=== PATIENT | male | born 1945 | race Caucasian/White ===

== ENCOUNTER 2017-07-20 13:44 | Inpatient (IN) | payer MEDICARE ==
[~2017-07-20] VITALS: Ht 180.3 cm; Wt 102.7 kg
--- NOTE | ~2017-07-20 | CN ---
PATIENT NAME:ALEX BAPTISTE MEDICAL RECORD: [id number] : 43 LOCATION:[facility].2120 ADMIT DATE: 07/20/17 ACCOUNT: [id number] CONSULTING PHYSICIAN: JOYA ROMO MD REFERRING PHYSICIAN: EMRE ZAMAN MD DATE OF CONSULTATION: 07/21/2017 CONSULT REQUESTING PHYSICIAN: Emre Zaman MD REASON FOR CONSULTATION: Acute exacerbation of bronchiectasis, pneumonia. HISTORY OF PRESENT ILLNESS: Mr. Baptiste is a 72-year-old very pleasant gentleman who has a history of bronchiectasis, atrial fibrillation, depression. The patient presented to [facility] with some tightness in the chest, but he is also having spasmodic cough for the last 2 weeks. It is very difficult to bring up any phlegm. In [facility], the chest radiograph showed some pneumonia, bibasal, and the patient was given some antibiotic. He had elevated cardiac enzyme and the patient was brought for advanced cardiac care. REVIEW OF THE SYSTEMS: As in history of present illness. PAST MEDICAL HISTORY: 1. Bronchiectasis. 2. Gastroesophageal reflux disease. 3. Obstructive sleep apnea. 4. Atrial fibrillation. 5. Anxiety, depression. PAST SURGICAL HISTORY: 1. Back surgery. 2. Herniorrhaphy. ALLERGIES: There are no known drug allergies. MEDICATIONS: Send Word Now was reviewed. PERSONAL AND SOCIAL HISTORY: The patient never smoked. He is nondrinker. FAMILY HISTORY: Significant for cardiovascular diseases. PHYSICAL EXAMINATION: GENERAL: Now, the patient is lying comfortably in bed. He is not in acute distress. VITAL SIGNS: Blood pressure 132/63, pulse is 95, respiration is 20, temperature is 99.7, SpO2 is 92% on 2.5 liters nasal cannula. HEENT: Conjunctivae are pink. Sclerae are not icteric. NECK: Neck is supple. No JVD. CHEST: The chest excursion is minimal on both sides. There are crackles, more at the left base than the right. HEART: Rhythm regular. Normal sound. No murmur. ABDOMEN: Abdomen is soft. Bowel sounds present. No hepatosplenomegaly. RECTAL: Deferred. EXTREMITIES: No cyanosis. No clubbing. No pedal edema. SKIN: The skin is warm. Normal turgor. CENTRAL NERVOUS SYSTEM: The patient is awake and alert. There are no obvious CONSULT REPORT [id number] ALEX BAPTISTE cranial nerve abnormalities. The gait was not tested. CHEST RADIOGRAPH: There are increased interstitial and bibasilar infiltrates. OTHER LABORATORY DATA: CBC; the WBC of 11.5, hemoglobin is 12.6, hematocrit 37.3, and platelet count 171. Chemistries; sodium is 141, potassium 3.4, BUN is 12. IMPRESSION: 1. Pneumonia, bibasal, most likely community-acquired pneumonia. 2. Bronchiectasis. The patient is seeing Dr. Jauregui at [place] and he has had workup for the bronchiectasis. 3. Acute exacerbation of bronchiectasis. 4. Acute cough. 5. Obstructive sleep apnea. 6. Chest pain with elevated cardiac enzymes. Rule out acute coronary syndrome. 7. Gastroesophageal reflux disease. RECOMMENDATION: 1. Start him on Levaquin and cefepime IV to cover for gram-negative rods. 2. Start Brovana and budesonide nebulizer. 3. Mucinex DM two tablets b.i.d. 4. Followup labs and chest radiograph in the morning. 5. The patient is going for the cardiac catheterization in the a.m. 6. GERD precaution given to keep the head end of the bed elevated by [address] Zaman, thank you for involving me in the care of Mr. Baptiste. TRANSINT:[id number] Voice Confirmation ID: [id number] DOCUMENT ID: [id number] JOYA ROMO MD at 1806 CC: EMRE ZAMAN MD [id number] DICTATION DATE: 07/21/17 1413 MALT LOADER: 07/21/17 1519 DIS IN 07/23/17 [place] [id number]
--- NOTE | ~2017-07-20 | EC ---
PATIENT:ALEX WILSON DATE OF SERVICE: 07/20/17 SEX: M MEDICAL RECORD: [id number] DATE OF : 43 LOCATION:D.M2 D.212 AGE OF PATIENT: 72 ADMISSION DATE: 07/20/17 REFERRING PHYSICIAN: INTERPRETING PHYSICIAN: COLUMBA ORDONEZ MD ECHOCARDIOGRAM REPORT ECHO CHARGES 4 ECHO COMPLETE Date: 07/21 CLINICAL DIAGNOSIS: CHEST PAIN, AFIB ECHOCARDIOGRAPHIC MEASUREMENTS (adult normal given) AC root (d.<3.7cm) 3.2 cm LV Septum d (<1.2 cm> 1.4 cm Valve Excursion 1.4 cm LV Septum (systole) 1.7 cm Left Atria (s.<4.0cm> 5.4 cm LVPW d(<1.2cm) 1.5 cm RV (d.<2.3cm) 4.7 cm LVPW (sytole) 1.6 cm LV diastole(<5.6CM) 5.5 cm MV E-F(>70mm/sec) cm LV systole 3.9 cm LVOT Diameter 2.0 cm MV exc.(>10mm) 1.6 cm Est.ejection fraction (50-75%) % DOPPLER: LVIT cm/sec A 43.0 cm/sec E 117 cm/sec LA cm/sec RVSP 45 mmHg LVOT 86 cm/sec AOP1/2T m/s Asc. Ao 163 cm/sec RVOT 88 cm/sec RA cm/sec PA 123 cm/sec AV Gradient Peak 10.61mmHg AV Mean 5.68 mmHg AV Area 2.7 cm MV Gradient Peak 4.97 mmHg MV Mean 1.84 mmHg MV Area cm COMMENTS: Lead Welder: 2 HADLEY LEBRON Community Manager: 4 Dr. Ordonez TAPE# PACS Pericardial Effusion N DATE OF SERVICE: PROCEDURE: Transthoracic echocardiogram. FINDINGS: 1. Left ventricle appears to be low normal 50% to 55%. There is atrial fibrillation. Inflow characteristics were not helpful for diastology, appears to be moderate left ventricular hypertrophy. 2. The right ventricle is moderately dilated. 3. The left atrium is severely dilated. ECHOCARDIOGRAM REPORT [id number] ALEX WILSON 4. The aortic valve is normal structure and function. 5. The mitral valve is normal structurally with sizp-fp-aecfnegy mitral regurgitation. 6. Tricuspid valve has yxzn-kd-pyimohhp tricuspid regurgitation. RVSP is mildly elevated at 45 mmHg. 7. The pulmonic valve is normal. 8. The pericardium appears to be normal. CONCLUSIONS: The patient has atrial fibrillation with preserved LV systolic function and left ventricular hypertrophy and dilated left atrium. TRANSINT:[id number] Voice Confirmation ID: [id number] DOCUMENT ID: [id number] COLUMBA ORDONEZ MD at 1029 CC: [id number] DICTATION DATE: 07/25/17 0758 DIRECTOR MORTGAGE: 07/25/17 0930 DIS IN 07/23/17 [facility] [address] [place] [address]
--- NOTE | ~2017-07-20 | HEMODYNAMI ---
PATIENT:ALEX WILSON MEDICAL RECORD: [id number] : 43 LOCATION:[address] ADMISSION DATE: 07/20/17 Generatedon:07/23/20178:55 Patient name: ALEX WILSON Patient #: [id number] SSN: [id number] : 1945 Date of study: 07/23/2017 Page: Of Hemodynamic Procedure Report Patient Data Patient Demographics Procedure consent was obtained First Name: ALEX Gender: Male Last Name: KATIE : 1945 Patient #: [id number] Age: 72 year(s) Race: SSN: [id number] Additional ID: [id number] Contact details Address: [address] [place] [address] State: [place] City: [place] Zip code: [address] Past Medical History Allergies: No known allergies Admission Admission Data Admission Date: 07/20/2017 Admission Time: 15:49 Arrival Date: 07/23/2017 Arrival Time: 15:49 Admit Source: Other Insurance Payor: Medicare Room #: D.2120 Lab Results Lab Result Date: 07/23/2017 Lab Result Time: 0:00 Biochemistry Name Units Result Min Max BUN mg/dl 16 --(---*)-- 7 18 Creatinine mg/dl 1.2 --(---*)-- 0.6 1.3 CBC Name Units Result Min Max Hemoglobin g/dl 12.6 -*(----)-- 13.5 17.5 Procedure Procedure Types Cath Procedure Diagnostic Procedure LHC LHC w/Coronaries Sedation Charges Moderate Sedation up to 15 minutes Procedure Description Procedure Date Procedure Date: 07/23/2017 Procedure Start Time: 8:39 Procedure End Time: 8:54 Procedure Staff Name Function Emre Ordonez MD Performing Physician Lucia Sullivan RT Monitor Cj Dietrich RN Nurse Yolanda Chung RT Scrub Procedure Data Cath Procedure Fluoroscopy Diagnostic fluoroscopy Total fluoroscopy Time: 2 time: 2 min min Diagnostic fluoroscopy Total fluoroscopy dose: 439 dose: 439 mGy mGy Contrast Material Contrast Material Type Amount (ml) Isovue 300 36 Entry Location Entry Primary Successful Side Size Upsize Upsize Entry Closure Bauer ccessful Closure Location (Fr) 1 (Fr) 2 (Fr) Remarks Device Remarks Radial Right 6 Fr Mechanical TR artery Short Compression Estimated blood loss: 10 ml Diagnostic catheters Device Type Used For End Catheter Placement DIAGNOSTIC Golden Gate 110cm 5 Procedure Fr catheter ([id number]) Procedure Complications No complications Procedure Medications Medication Administration Route Dosage Oxygen NC 3 l/min Lidocaine 2% added to field 20 Heparin Flush Bag added to field 2 bags (1000units/500ml NS) 0.9% NaCl I.V. 100 ml/hr Versed I.V. 1 mg Fentanyl I.V. 25 mcg Radial Cocktail I.A. 1 syringe (Verapomil 2mg/Nitro 400mcg/Heparin 1500units) Nitroglycerin IC/IA I.A. 300 mcg Hemodynamics Rest HGB: 12.6 (g/dl) Heart Rate: 96 (bpm) Pressure Samples Time Site Value (mmHg) Purpose Heart Use Rate(bpm) 8:48 LV 116/-11,-10 Snapshot 91 8:48 LV 230/-27,-12 EDP 62 Gradients Valve Time Site Site Mean SEP/DFP Peak To Heart Use 1 2 (mmHg) (sec/min) Peak Rate (mmHg) (bpm) Aortic 8:48 LV AO 93 Snapshots Pre Cath Intra NCS Post Cath Vital Signs Time Heart Resp SPO2 etCO2 NIBP (mmHg) Rhythm Pain Sedation Rate (ipm) (%) (mmHg) Status Level (bpm) 8:26:09 89 19 97 18.6 156/103(132) A-Fib 0 (11) 10(A) , No pain 8:30:19 77 22 97 25.3 162/99(129) A-Fib 0 (11) 10(A) , No pain 8:34:31 85 23 97 24.5 148/94(140) A-Fib 0 (11) 10(A) , No pain 8:38:33 81 19 92 11.9 150/97(131) A-Fib 0 (11) 10(A) , No pain 8:42:40 89 19 96 18.6 151/100(133) A-Fib 0 (11) 10(A) , No pain 8:46:44 77 24 90 8.9 129/84(107) A-Fib 0 (11) 10(A) , No pain 8:50:56 80 20 94 13.4 120/76(107) A-Fib 0 (11) 10(A) , No pain 8:55:02 74 24 96 29.7 138/85(118) A-Fib 0 (11) 10(A) , No pain Medications Time Medication Route Dose Verified Delivered Reason Notes Effectiveness by by 8:24:35 Oxygen NC 3 l/min Emre Buffie used for José Luis Dietrich RN procedure MD 8:25:24 Lidocaine 2% added 20ml Emre Emre for local to vial José Luis Ordonez MD anesthetic field [facility] 8:25:29 Heparin Flush added 2 bags Emre Emre used for Bag to José Luis Ordonez MD procedure (1000units/500ml field [place]AL[place] NS) 8:25:37 0.9% NaCl I.V. 100 Emre Buffie Per ml/hr José Luis Dietrich RN physician 8:35:56 Versed I.V. 1 mg Emre Buffie for sedation José Luis Dietrich RN, MD 8:36:01 Fentanyl I.V. 25 mcg Emre Buffie for sedation José Luis Dietrich RN, MD 8:43:44 Radial Cocktail I.A. 1 Emre Emre for (Verapomil syringe José Luis Ordonez MD vasodilation 2mg/Nitro 400mcg/Heparin 1500units) 8:44:43 Nitroglycerin I.A. 300 mcg Emre Emre for for IC/IA José Luis Ordonez MD vasodilation possible spasm to rad artery Procedure Log Time Note 7:26:09 Diagnostic Cath Status : Elective 7:35:32 Informed consent obtained and on chart 7:35:47 Admit Source: Other 7:36:02 Arrival Date: 07/23/2017 3:49:00 PM 7:36:07 Insurance Payor : Medicare 7:37:00 Lab Result : Creatinine 1.2 mg/dl 7:37:00 Lab Result : BUN 16 mg/dl 7:37:00 Lab Result : Hemoglobin 12.6 g/dl 8:15:56 Cj Dietrich RN sent for patient. Start room use. 8:15:57 Time tracking: Regular hours (M-F 7:00 - 5:00) 8:16:01 Plan of Care:Hemodynamics will remain stable., Cardiac rhythm will remain stable., Comfort level will be maintained., Respiratory function will remain adequate., Patient/ family verbilizes understanding of procedure., Procedure tolerated without complication., Recovers from procedure without complications.. 8:19:07 Patient received from Med II to CCL 2 Alert and oriented. Tansferred to table in Supine position. 8:19:08 Warm blankets applied, and acrmela hugger turned on for patient comfort. 8:19:08 Correct patient and procedure confirmed by team. 8:19:09 ECG and BP/O2 sat monitors applied to patient. 8:24:23 Vital chart was started 8:24:35 Oxygen 3 l/min NC was administered by Cj Dietrich RN; used for procedure; 8:25:24 Lidocaine 2% 20ml vial added to field was administered by Emre Ordonez MD; for local anesthetic; 8:25:29 Heparin Flush Bag (1000units/500ml NS) 2 bags added to field was administered by Emre Ordonez MD; used for procedure; 8:25:37 0.9% NaCl 100 ml/hr I.V. was administered by Cj Dietrich RN; Per physician; 8:33:01 Baseline sample Acquired. 8:33:17 Rhythm: atrial fibrillation 8:33:19 Full Disclosure recording started 8:34:00 H&P Date Dictated: 07/22/2017 Within 30 days and on chart.. 8:34:01 Pre-procedure instructions explained to patient. 8:34:04 Family in patients room. 8:34:06 Patient NPO since Midnight. 8:34:17 Patient allergic to No known allergies 8:34:22 Is the patient allergic to Iodine/contrast media? No. 8:34:23 Was the patient premedicated? Yes 8:34:25 Is patient on blood thinner?Yes 8:34:28 ACC The patient was administered the following blood thiners within the last 24 hours: ACCPlavix 8:34:31 Patient diabetic? No. 8:34:35 Snore? Yes 8:34:36 Sleep apnea? Yes 8:34:37 Deviated septum? No 8:35:06 Airway obstruction? Yes chronic broncitis, pneumonia 8:35:10 Dentures? No ? 8:35:15 Patient pain scale 0/10 ?. 8:35:22 IV patent on arrival in left forearm with 0.9% NaCl at O. 8:35:27 Lab results completed and on chart. 8:35:31 Right Radial & Right Groin area was prepped with chlora-prep and draped in sterile fashion 8:35:32 Alarms reviewed by R. N. 8:35:33 Sharps counted by scrub and verified by R.N. 8:35:35 Physician arrived 8:35:36 --------ALL STOP TIME OUT------ 8:35:36 Final Timeout: patient, procedure, and site verified with staff and physician. All members of the team are in agreement. 8:35:41 Right Radial & Right Groin site verified by team. 8:35:46 Physical assessment completed. ASA score P 2 - A patient with mild systemic disease as per Emre Ordonez MD. 8:35:51 Sedation plan: IV Moderate Sedation Medication:Versed, Fentanyl 8:35:55 Use device set Femoral Dx 8:35:56 Versed 1 mg I.V. was administered by Cj Dietrich RN; for sedation; 8:36:01 Fentanyl 25 mcg I.V. was administered by Cj Dietrich RN; for sedation; 8:38:17 ACIST Syringe (74339) opened to sterile field. 8:38:18 Bag Decanter (2002) opened to sterile field. 8:38:19 Medline Cath Pack ([id number]) opened to sterile field. 8:38:19 DIAGNOSTIC WIRE .035 260cm J wire (249017) opened to sterile field. 8:38:20 ACIST Hand Control (37786) opened to sterile field. 8:38:21 ACIST Manifold (46429) opened to sterile field. 8:38:23 Tegaderm 4 x 4 (1626W) opened to sterile field. 8:38:43 SHEATH 6Fr Prelude Radial ([id number]) opened to sterile field. 8:39:14 Procedure started. 8:39:37 Local anesthetic to right radial artery with Lidocaine 2% by Emre Ordonez MD.INITIAL ACCESS ONLY 8:42:34 A DIAGNOSTIC Golden Gate 110cm 5 Fr catheter (268388) was advanced over the wire and used for Procedure. 8:42:48 A 6 Fr Short sheath was inserted into the Right Radial artery 8:43:44 Radial Cocktail (Verapomil 2mg/Nitro 400mcg/Heparin 1500units) 1 syringe I.A. was administered by Emre Ordonez MD; for vasodilation; 8:44:43 Nitroglycerin IC/IA 300 mcg I.A. was administered by Emre Ordonez MD; for vasodilation; for possible spasm to rad artery 8:47:14 GLIDE WIRE ANGLE 260cm ([id number]) opened to sterile field. 8:47:29 glidewire used through tiger 8:48:57 LV angiography performed. 8:49:07 LCA angiography performed. 8:50:03 RCA angiography performed. 8:51:49 Catheter removed. 8:52:17 Sheath removed intact; hemostasis achieved with Mechanical Compression to the Right Radial artery. 8:52:26 TR BAND Standard ([id number]) opened to sterile field. 8:52:30 Procedure ended.(Physican Out) 8:52:41 Fluoroscopy time 02.00 minutes. 8:52:45 Fluoroscopy dose: 439 mGy 8:52:45 Flurop Dose total: 439 8:52:50 Contrast amount:Isovue 300 36ml. 8:52:54 TR band inflated with 13cc of air. 8:52:56 Insertion/operative site no bleeding no hematoma. 8:52:58 Post Procedure Pulses reassessed and unchanged 8:53:02 Post-procedure physical assessment completed. ASA score P 2 - A patient with mild systemic disease as per Emre Ordonez MD. 8:53:07 Post procedure rhythm: unchanged. 8:53:12 Estimated blood loss: 10 ml 8:53:13 Post procedure instruction explained to patient.Patient verbalizes understanding. 8:53:42 Procedure type changed to Cath procedure, Diagnostic procedure, LHC, LHC w/Coronaries, Sedation Charges, Moderate Sedation up to 15 minutes 8:53:44 Procedure and supply charges have been captured, reviewed, submitted and are correct. 8:54:21 Procedure Complication : No complications 8:54:23 Vital chart was stopped 8:54:24 See physician's report for complete and final results. 8:54:27 Report given to [facility] II. 8:54:32 Patient transfered to [facility] with Bed. 8:54:35 Procedure ended. 8:54:35 Full Disclosure recording stopped 8:54:40 End room use (Document Last) Device Usage Item Name Manufacture Quantity Catalog Number Hospital Part Current M inimal Lot# / Charge Number Stock Stock Serial# Code ACIST Syringe Acist 1 10405 943851 964425 030900 2 0 (99590) [employer] Bag Decanter Microtek 1 2001S 039737 94606 998211 5 (2001S) Medical Inc. Medline Cath Cardinal 1 [id number] 077679 03831 918043 5 Pack Health ([id number]) DIAGNOSTIC WIRE [place] 1 521124 453689 622480 300952 3 0 .035 260cm J wire (512159) ACIST Hand Acist 1 89966 531441 471985 489830 5 Control (26428) [employer] ACIST Manifold Acist 1 30434 165018 793914 847267 5 (45473) [employer] Inc Tegaderm 4 x 4 3M 1 1626W 732227 722972 498363 5 (1626W) SHEATH 6Fr Merit 1 [id number] 369795 897008 537809 5 Prelude Radial Medical ([id number]) DIAGNOSTIC Terumo 1 40-2635 621431 206207 236013 5 Golden Gate 110cm 5 Fr catheter (111362) GLIDE WIRE Terumo 1 [id number] 251102 160667 537159 5 ANGLE 260cm ([id number]) TR BAND Terumo 1 [id number] 235894 360057 016683 4 0 Standard ([id number]) Signature Audit [place] Stage Time Signature Unsigned Intra-Procedure 07/23/2017 Lucia Sullivan 8:55:39 AM RT(R) Signatures Monitor : Lucia Sullivan Signature : RT Date : Time : [facility] [address] [place] [address]
[2017-07-20] MEDS ORDERED: LEVOTHYROXINE100 MCG PO (15:56)
[2017-07-20] MEDS ORDERED: LIPITOR80 MG PO (15:57)
[2017-07-20] MEDS ORDERED: HYTRIN5 MG PO (15:57)
[2017-07-20] MEDS ORDERED: OMEPRAZOLE40 MG PO (15:57)
[2017-07-20] MEDS ORDERED: COUMADIN5 MG PO (15:58)
[2017-07-20] MEDS ORDERED: TENORMIN25 MG PO (15:58)
[2017-07-20] MEDS ORDERED: COUMADIN2 MG PO (15:59)
[2017-07-20 16:19] VITALS: BP 145/72; BMI 32.2
[2017-07-20 17:21] LABS: BASOPHILS 0.2 % (0-2); EOSINOPHILS 1.8 % (0-7); HEMATOCRIT 37.3 % (42.0-54.0); HEMOGLOBIN 12.6 g/dL (13.5-17.5); IMMATURE GRANULOCYTES 0.3 % (0-5); LYMPHOCYTES 12.4 % (15-50); MCH 30.4 pg (26.0-34.0); MCHC 33.8 g/dL (31.0-37.0); MCV 89.9 fL (80.0-100.0); MEAN PLATELET VOLUME 9.1 fL (7.4-10.4); MONOCYTES 7.8 % (2-11); NEUTROPHILS 77.5 % (40-80); PLATELET COUNT 175 10x3/uL (130-400); RBC 4.15 10x6/uL (4.20-6.10); RDW 14.6 % (11.5-14.5); WBC 11.5 10x3/uL (4.8-10.8)
[2017-07-20 17:44] LABS: INR 2.78 (0.85-1.17); PROTIME 28.6 SECONDS (11.6-15.0)
[2017-07-20 17:55] LABS: CALC OSMOLALITY 278 mosm/kg (275-300); CALCIUM 8.2 mg/dL (8.5-10.1); CARBON DIOXIDE 24.8 mmol/L (21.0-32.0); CHLORIDE - SERUM 104 mmol/L (98-107); CKMB 0.9 U/L (0.0-3.6); CREATINE KINASE 224 UL (21-232); CREATININE - SERUM 1.2 mg/dL (0.6-1.3); GLUCOSE 130 mg/dL (74-106); POTASSIUM - SERUM 3.4 mmol/L (3.5-5.1); SODIUM 138 mmol/L (136-145); TROPONIN-I 0.031 ng/mL (0.000-0.060); UREA NITROGEN 16 mg/dL (7-18); eGFR NON AFRICAN AMERICAN 63 mL/min (90-120)
[2017-07-20 19:40] VITALS: BP 155/73
[2017-07-20 23:06] LABS: CKMB 0.8 U/L (0.0-3.6); CREATINE KINASE 220 UL (21-232); TROPONIN-I 0.034 ng/mL (0.000-0.060)
[2017-07-21] VITALS: BP 125/59
[2017-07-21 04:00] VITALS: BP 158/67
[2017-07-21 07:38] LABS: CREATINE KINASE 164 UL (21-232); TROPONIN-I 0.035 ng/mL (0.000-0.060)
[2017-07-21 08:31] LABS: BASOPHILS 0.2 % (0-2); EOSINOPHILS 4.3 % (0-7); IMMATURE GRANULOCYTES 0.2 % (0-5); LYMPHOCYTES 14.2 % (15-50); MCH 29.9 pg (26.0-34.0); MCHC 33.3 g/dL (31.0-37.0); MCV 89.8 fL (80.0-100.0); MEAN PLATELET VOLUME 9.8 fL (7.4-10.4); MONOCYTES 11.5 % (2-11); NEUTROPHILS 69.6 % (40-80); PLATELET COUNT 209 10x3/uL (130-400); RBC 4.01 10x6/uL (4.20-6.10); RDW 14.6 % (11.5-14.5); WBC 9.9 10x3/uL (4.8-10.8)
[2017-07-21 08:33] LABS: INR 2.51 (0.85-1.17); PROTIME 26.4 SECONDS (11.6-15.0)
[2017-07-21 08:36] LABS: CALC OSMOLALITY 279 mosm/kg (275-300); CALCIUM 8.3 mg/dL (8.5-10.1); CARBON DIOXIDE 26.7 mmol/L (21.0-32.0); CHLORIDE - SERUM 106 mmol/L (98-107); GLUCOSE 89 mg/dL (74-106); POTASSIUM - SERUM 3.4 mmol/L (3.5-5.1); SODIUM 141 mmol/L (136-145); UREA NITROGEN 12 mg/dL (7-18); eGFR NON AFRICAN AMERICAN 78 mL/min (90-120)
[2017-07-21 09:41] VITALS: BP 132/63
[2017-07-21 12:02] VITALS: Ht 180.3 cm; Wt 102.7 kg
[2017-07-21 12:40] LABS: % SATURATION 13 % (15-55); IRON 27 ug/dl (35-150); TOTAL IRON BIND CAPACITY 194 ug/dl (260-445); UNSAT IRON BIND CAPACITY 167 ug/dl (150-375)
[2017-07-21 12:50] VITALS: BP 157/85
[2017-07-21 17:37] VITALS: BP 153/77
[2017-07-21 20:00] VITALS: BP 148/78
[2017-07-22 04:00] VITALS: BP 112/73
[2017-07-22 05:59] LABS: BASOPHILS 0.1 % (0-2); EOSINOPHILS 2.2 % (0-7); HEMATOCRIT 35.2 % (42.0-54.0); HEMOGLOBIN 11.6 g/dL (13.5-17.5); IMMATURE GRANULOCYTES 0.3 % (0-5); LYMPHOCYTES 12.1 % (15-50); MCH 29.4 pg (26.0-34.0); MCV 89.3 fL (80.0-100.0); MEAN PLATELET VOLUME 9.1 fL (7.4-10.4); MONOCYTES 10.6 % (2-11); NEUTROPHILS 74.7 % (40-80); PLATELET COUNT 197 10x3/uL (130-400); RBC 3.94 10x6/uL (4.20-6.10); RDW 14.7 % (11.5-14.5); WBC 9.5 10x3/uL (4.8-10.8)
[2017-07-22 06:03] LABS: CALC OSMOLALITY 276 mosm/kg (275-300); CALCIUM 8.3 mg/dL (8.5-10.1); CARBON DIOXIDE 27.2 mmol/L (21.0-32.0); CHLORIDE - SERUM 105 mmol/L (98-107); GLUCOSE 99 mg/dL (74-106); POTASSIUM - SERUM 3.5 mmol/L (3.5-5.1); SODIUM 139 mmol/L (136-145); UREA NITROGEN 9 mg/dL (7-18); eGFR NON AFRICAN AMERICAN 78 mL/min (90-120)
[2017-07-22 08:00] VITALS: BP 112/70
[2017-07-22 10:34] LABS: BASOPHILS 0.2 % (0-2); EOSINOPHILS 1.4 % (0-7); HEMATOCRIT 36.6 % (42.0-54.0); HEMOGLOBIN 12.1 g/dL (13.5-17.5); IMMATURE GRANULOCYTES 0.2 % (0-5); MCH 29.9 pg (26.0-34.0); MCHC 33.1 g/dL (31.0-37.0); MCV 90.4 fL (80.0-100.0); MEAN PLATELET VOLUME 9.1 fL (7.4-10.4); MONOCYTES 10.1 % (2-11); NEUTROPHILS 78.1 % (40-80); PLATELET COUNT 206 10x3/uL (130-400); RBC 4.05 10x6/uL (4.20-6.10); RDW 14.7 % (11.5-14.5); WBC 9.9 10x3/uL (4.8-10.8)
[2017-07-22 10:35] LABS: ANION GAP 11.7 mmol/L (8-16); CALCIUM 8.4 mg/dL (8.5-10.1); CARBON DIOXIDE 27.6 mmol/L (21.0-32.0); CREATININE - SERUM 1.1 mg/dL (0.6-1.3); POTASSIUM - SERUM 3.3 mmol/L (3.5-5.1)
[2017-07-22 10:39] LABS: INR 1.51 (0.85-1.17); PROTIME 17.7 SECONDS (11.6-15.0)
[2017-07-22 11:02] VITALS: BP 148/71
[2017-07-22 15:31] VITALS: BP 154/68
[2017-07-22 20:24] VITALS: BP 161/73
[2017-07-23 06:14] VITALS: BP 97/40
[2017-07-23 06:40] LABS: BASOPHILS 0.2 % (0-2); EOSINOPHILS 2.3 % (0-7); HEMATOCRIT 37.6 % (42.0-54.0); HEMOGLOBIN 12.4 g/dL (13.5-17.5); IMMATURE GRANULOCYTES 0.5 % (0-5); LYMPHOCYTES 13.9 % (15-50); MEAN PLATELET VOLUME 9.1 fL (7.4-10.4); MONOCYTES 9.4 % (2-11); NEUTROPHILS 73.7 % (40-80); PLATELET COUNT 228 10x3/uL (130-400); RBC 4.13 10x6/uL (4.20-6.10); WBC 11.1 10x3/uL (4.8-10.8)
[2017-07-23 06:51] LABS: ANION GAP 13.2 mmol/L (8-16); CALCIUM 8.6 mg/dL (8.5-10.1); CARBON DIOXIDE 26.4 mmol/L (21.0-32.0); CREATININE - SERUM 1.2 mg/dL (0.6-1.3); POTASSIUM - SERUM 3.6 mmol/L (3.5-5.1)
[2017-07-23 07:51] VITALS: BP 127/64
[2017-07-23] MEDS ORDERED: PLAVIX75 MG PO (08:58)
[2017-07-23 10:25] VITALS: BP 150/75
[2017-07-23] MEDS ORDERED: LEVAQUIN750 MG PO (12:44)
[2017-07-23] MEDS ORDERED: IPRAT-ALBUT 0.5-3 ML UPD (12:45)
[2017-07-24 08:22] LABS: FOLATE (FOLIC ACID) - SERUM 2.8 ng/mL (>3.0)
== END 2017-07-23 14:10 | disposition home or self-care (01) | DRG 286 ==
LOC: D.M2 13:44
PROVIDERS: Internal Medicine Cardiovascular Disease; Internal Medicine Nephrology
PROC: B2151ZZ Fluoroscopy of Left Heart using Low Osmolar Contrast (ICD-10-PCS; 2017-07-23)
PROC: 4A023N7 Measurement of Cardiac Sampling and Pressure, Left Heart, Percutaneous Approach (ICD-10-PCS; 2017-07-23)
PROC: B2111ZZ Fluoroscopy of Multiple Coronary Arteries using Low Osmolar Contrast (ICD-10-PCS; principal; 2017-07-23 12:30)
DX: I25.110 Atherosclerotic heart disease of native coronary artery with unstable angina pectoris (principal); J18.9 Pneumonia, unspecified organism; J96.01 Acute respiratory failure with hypoxia; J47.1 Bronchiectasis with (acute) exacerbation; J47.0 Bronchiectasis with acute lower respiratory infection; I48.91 Unspecified atrial fibrillation; F32.9 Major depressive disorder, single episode, unspecified; K21.9 Gastro-esophageal reflux disease without esophagitis; G47.33 Obstructive sleep apnea (adult) (pediatric); F41.9 Anxiety disorder, unspecified; E87.6 Hypokalemia; D64.9 Anemia, unspecified